=== PATIENT | male | born 1980 | race Caucasian/White ===

== ENCOUNTER → 2016-10-07 | Outpatient (CLI) | payer OTHER ==
--- NOTE | 2016-10-07 21:40 | DIAGNOSTIC IMAGING REPORT ---
LUMBAR SPINE 5 VIEWS CLINICAL HISTORY: Low back pain. FINDINGS: 5 views of the lumbar spine are compared to study dated 08/05/2013. The skeletal structures are well mineralized. There is no radiographic evidence of fracture or malalignment. Vertebral body height and alignment are maintained. 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 The transverse and spinous processes are intact. There is no evidence of spondylolysis. The intervertebral disc spaces are well-maintained. The visualized bony pelvis appears intact. There is a nonobstructed abdominal bowel gas pattern. Moderate colonic fecal retention is observed. IMPRESSION: Unremarkable radiographic evaluation of the lumbosacral spine. Electronically signed by: Roman Romeo M.D. 10/07/2016 9:38 PM Dictated Date/Time: 10/07/2016 9:38 PM
--- NOTE | 2016-10-07 21:44 | DIAGNOSTIC IMAGING REPORT ---
LEFT SHOULDER 3 VIEWS CLINICAL HISTORY: Left shoulder pain. FINDINGS: 3 views of left shoulder are obtained. No prior studies are available for comparison at the time of dictation. The skeletal structures are well mineralized. No fracture or dislocation is seen. Mild degenerative change is seen at the glenohumeral articulation. The acromio clavicular joint is preserved. The overlying soft tissues are within normal limits. The imaged left upper lobe lung parenchyma appears clear. IMPRESSION: No acute bony abnormality is identified in the left shoulder noting mild degenerative change at the glenohumeral joint. Electronically signed by: Roman Romeo M.D. 10/07/2016 9:43 PM Dictated Date/Time: 10/07/2016 9:41 PM
== END | disposition home or self-care (01) ==
LOC: C.RAD 21:01
PROVIDERS: ATTEND Anesthesiology Pain Medicine
DX: M54.5 Low back pain (principal); M54.14 Radiculopathy, thoracic region; M54.16 Radiculopathy, lumbar region; M54.40 Lumbago with sciatica, unspecified side; G89.4 Chronic pain syndrome; M25.519 Pain in unspecified shoulder